=== PATIENT | male | born 1985 | race Caucasian/White ===

== ENCOUNTER 2019-09-04 10:29 | Emergency (ER) | payer OTHER ==
[~2019-09-04] VITALS: Ht 193 cm; Wt 119.0 kg
--- NOTE | 2019-09-04 10:40 | PHYS DOC ---
Past History Past Medical History: No Pertinent History General Adult EDM: Chief Complaint: UPPER EXTREMITY PAIN HPI: HPI: Healthy 34-year-old male, [id number], who presents for the evaluation of left shoulder pain status post FOOSH injury yesterday, when he was bucked off a horse. No head injury or LOC. No distal weakness or paresthesia. He points to his left deltoid region as area of greatest pain. He has difficulty abducting the affected extremity beyond 90 degrees due to pain. Ibuprofen with mild efficacy. Review of Systems: Review of Systems: Gen: No fever, chills. Eyes: No blurred vision, diplopia. ENT: No facial pain or epistaxis. CV: No CP, syncope. Resp. No SOB, cough. GI: No abd pain, N/V. Neuro: No NELSON, CHI, dizziness, weakness. MSK: No back pain. Reports arthralgia. Skin: No acute rash or lesion. Heart Score: Risk Factors: Risk Factors: DM, Current or recent (<one month) smoker, HTN, HLP, family history of CAD, obesity. Risk Scores: Score 0 - 3: 2.5% MACE over next 6 weeks - Discharge Home Score 4 - 6: 20.3% MACE over next 6 weeks - Admit for Clinical Observation Score 7 - 10: 72.7% MACE over next 6 weeks - Early Invasive Strategies Physical Exam: PE: Gen: NAD. Head: NC/AT. Eyes: No scleral icterus. No conjunctival injection. PERRL. ENT: MMM. Posterior OP clear. Neck: Supple. NT. CV: RRR. Peripheral pulses intact. Resp: CTAB. Chest: No anterior chest wall TTP. Back: No midline TTP or stepoffs. Abd: Soft. NT. ND. MSK: No peripheral cyanosis. No edema. Mild nonfocal TTP left deltoid region, with some difficulty abducting > 90 degrees 2/2 pain (though still able to perform the maneuver). No motor/sensory deficit LUE. Neuro: A&Ox3. Strength & sensation grossly intact throughout. Skin. Warm. Dry. Psych: Appropriate mood & affect. EKG: EKG: [] Radiology/Procedures: Radiology/Procedures: [] Course & Med Decision Making: Course & Med Decision Making Pertinent Labs and Imaging studies reviewed. (See chart for details) In summary, 34M p/w left lateral shoulder pain s/p FOOSH. Neurovascularly intact distally. Pain most pronounced with active abduction at shoulder, though still able to abduct > 90 degrees. Left shoulder XR neg for Fx. Still concerned for possibility of ligamentous injury. Will Rx flexeril. Sling for comfort. Outpatient ortho FU if Sx persist for possible outpatient MRI. Return precautions given. Dragon Disclaimer: Dragon Disclaimer: This electronic medical record was generated, in whole or in part, using a voice recognition dictation system. Departure Departure: Impression: Primary Impression: Sprain of left shoulder Disposition: HOME/RESIDENCE PRIOR TO ADM Condition: STABLE Referrals: PCP,[facility]INE (PCP) NOLAN MEYERS II, MD [facility] Patient Instructions: Shoulder Sprain Additional Instructions: Apply heat to the affected shoulder for no more than 20 minutes at a time. Take the prescribed medication. Take motrin (ibuprofen) 600 mg every 8 hours for pain. Follow up with orthopedics if you have continued pain, and further imaging if indicated (i.e. MRI for possible ligamentous injury). Scripts Cyclobenzaprine Hcl (CYCLOBENZAPRINE HCL) 10 Mg Tablet 1 TAB PO TID for pain, #30 TAB Prov: ILYA MORRIS DO 09/04/19 Justification of Admission: Justification of Admission: Justification of Admission Dx: N/A ILYA MORRIS DO Sep 04, 2019 10:40
[2019-09-04 10:41] VITALS: BP 126/96
[2019-09-04] MEDS ORDERED: CYCL-331 PO ×2 (11:00→11:07)
--- NOTE | 2019-09-04 11:10 | RAD ---
SHOULDER 2+V LEFT 09/04/2019 10:37 AM INDICATION: Left lateral shoulder pain COMPARISON: None available. TECHNIQUE: 3 views of the left shoulder are provided. FINDINGS/ IMPRESSION: 1. No acute fracture or dislocation involving the acromioclavicular and glenohumeral joints. 2. There may be a nondisplaced fracture involving the left anterolateral fourth rib. Correlate with point tenderness. 3. Broad-based focal contour abnormality involving the lateral left third rib with cortical medullary continuity could represent a 10 mm osteochondroma. Electronically signed by: Shani Salcido MD (09/04/2019 11:07 AM) [facility]
== END 2019-09-04 11:14 | disposition home or self-care (01) ==
LOC: ER 10:29
DX: S43.402A Unspecified sprain of left shoulder joint, initial encounter (principal); W55.19XA Other contact with horse, initial encounter; Y93.89 Activity, other specified; Y92.89 Other specified places as the place of occurrence of the external cause; Y99.8 Other external cause status
CPT/HCPCS: 73030; 99283